=== PATIENT | male | born 1945 | race Caucasian/White ===

== ENCOUNTER → 2017-12-31 | Outpatient (CLI) | payer OTHER, MEDICARE ==
[~2017-12-31] VITALS: Ht 167.6 cm; Wt 83.9 kg
[~2017-12-31] MED LIST: COREG6.25 MG PO; MAXZIDE-25 MG1 EACH PO; MOBIC7.5 MG PO; RAMIPRIL10 MG PO; ZOCOR20 MG PO
--- NOTE | ~2017-12-31 | CATHLAB ---
[facility] [address] [place] [address] INVASIVE PROCEDURE REPORT Name: JERILYN IBRAHIM Ruth [id number] Admission: 12/31/17 Attend Phys: Sly Schneider Discharge: Date of : 45 Date of Service: 01/01/18 1243 Report #: [id number] THIS REPORT FOR: //name// APPROVED REPORT Study performed: 12/31/2017 10:05:02 Patient Details Patient Status: Out-Patient Room #: The patient is a 72 year-old male Event Personnel Sly Ruff Branch Customer Service Representative, Tammy Lou Monitor, Khushi Mayer RTR, SIENNA Scrub, Joshua Oliveira RN Indication Positive stress test Procedure Narrative The patient was brought electively to the Cardiac Catheterization Laboratory and was prepped and draped in a sterile manner. The Right Groin^ was infiltrated with 1% Lidocaine subcutaneous anesthesia. A PINNACLE 4FR Sheath #[id number] sheath was inserted into the RFA^. Coronary angiography was performed using coronary diagnostic catheters. The right coronary system was accessed and visualized with a JR 4 catheter. The left coronary system was accessed and visualized with a JL 4 catheter. The left ventricle was accessed and visualized with a Pigtail catheter. Left ventricular/Aortic Valve gradient assessed via catheter pullback. Hemostasis was obtained with manual pressure following sheath removal without any complications. The patient tolerated the procedure well and there were no complications associated with the procedure. There was no hematoma. Intraoperative Conscious Sedation Sedation start time: 10:26 Case end Time: 10:48 Versed 2 mg Fluoro Time: 2.56 minutes Dose: DAP 43829.10 cGycm2 554 mGy Contrast Type and Amount: Omnipaque 45 ml Coronary Angiography The patient's coronary anatomy is right dominant. [address] [address] INVASIVE PROCEDURE REPORT Name: JERILYN IBRAHIM Room #: [facility]#: [id number] Admission: 12/31/17 Attend Phys: Sly Schneider Discharge: Date of : 45 Date of Service: 01/01/18 1243 Report #: [id number] Diagnostic Cath Left Main Normal origin and caliber bifurcates left anterior descending left circumflex. There is mild scalloping of less than 30%. No significant obstructive lesion. LAD Small caliber type II vessel which has significant calcification on fluoroscopy. It's a moderate proximal calcification is noted as it proceeds giving rise to a first diagonal branches has an eccentric 65-70% lesion. This is calcified and is from its origin at an acute angle takeoff from the LAD proper. The LAD then continues in the anterior interventricular sulcus with mild to moderate luminal irregularities and terminates at the apex. Diagonal 1 Small-caliber vessel which has an eccentric 65-70% calcified lesion at the ostium. Then continues on without significant obstructive lesions. Flow is JULIO CESAR 300 injection. Circumflex Moderate caliber vessel which has heavy fluoroscopic calcification proximally. It gives rise to 2 early marginal branches which are small in caliber and free of high-grade disease although there is luminal irregularities present. There appears to be a 50% at worst lesion after the second marginal branches the circumflex proper continues posteriorly terminating and posterior wall is small-caliber bifurcating vessels Right Coronary Large caliber ectatic vessel of normal origin which has irregularities of less than 30% in the ectatic region. At the posterior crux of the heart at the origin of the posterior descending artery appears to have a normal appearing vessel and there is a 50% blockage noted prior to the distal circulation becoming ectatic once again. No significant flow-limiting findings are noted R PDA Moderate caliber vessel or seen in the posterior interventricular sulcus thinning and terminating as small-caliber vessel at the apex with luminal irregularities Left Ventriculography Left Ventriculography was not performed. Hemodynamics The aortic pressure is 133/78 mmHg with a mean of 93 mmHg. The left ventricular pressure is 125/9 mmHg with a mean of mmHg. The left ventricular end diastolic pressure is 19 mmHg. Conclusion 1. Coronary artery disease moderate two-vessel with severely ectatic right coronary artery 2. Abnormal hemodynamics with elevated left ventricular end-diastolic pressures [facility] [address] [place] [address] INVASIVE PROCEDURE REPORT Name: JERILYN IBRAHIM Room #: REG [place]#: [id number] Admission: 12/31/17 Attend Phys: Sly Schneider Discharge: Date of : 45 Date of Service: 01/01/18 1243 Report #: [id number] Recommendations Cardiac Risk Reduction Program Aggressive Medical Therapy <ELECTRONICALLY SIGNED> By: Sly Ruff MD 01/01/18 1243 1243 1243 Sly Ruff MD /INF
[2017-12-31 08:40] VITALS: BP 121/74
== END | disposition home or self-care (01) ==
LOC: CATH 07:53
DX: I25.10 Atherosclerotic heart disease of native coronary artery without angina pectoris (principal); I50.1 Left ventricular failure, unspecified; I10 Essential (primary) hypertension; Z98.890 Other specified postprocedural states; Z79.899 Other long term (current) drug therapy

== ENCOUNTER 2018-04-02 15:02 | Inpatient (IN) | payer OTHER, MEDICARE ==
[~2018-04-02] VITALS: Ht 167.6 cm; Wt 78.9 kg
--- NOTE | ~2018-04-02 | HC ---
[facility] [place] [address] CONSULTATION Name: JERILYN IBRAHIM Room #: 216-P [facility] IN M.R.#: [id number] Admission: 04/02/18 Attend Phys: Bill Garcia MD Discharge: Date of : 45 Report #: [id number] THIS REPORT FOR: //name// CC: Bill MORILLO PCP DATE OF SERVICE: 04/03/2018 INDICATION: Shortness of air. HISTORY OF PRESENT ILLNESS: This is a 72-year-old gentleman with a history of moderate CAD, moderate nonischemic cardiomyopathy, hypertension, hypercholesterolemia, presenting with increasing dyspnea and palpitations. Over the past week, he has developed dyspnea with mild to moderate levels of physical exertion. It seems to be worse at night when he is lying down. He has also noticed an increase in his heart rate. The patient denies any history of fever, chills, or nausea. He had a recent knee operation about 7 weeks ago. He presented to the ER for an evaluation. A CT scan was negative for PE. He was diagnosed with heart failure and managed with IV Lasix. Overnight, his output was 3.6 liters of urine. PAST MEDICAL HISTORY: Cardiac catheterization by Dr. Ruff in 12/2017 revealed moderate 2-vessel disease with an ectatic RCA and medical therapy was recommended. An echo revealed EF in the 40% range with mild to moderate AI and MR. Hypertension, hypercholesterolemia. ALLERGIES: None. MEDICATIONS: Include Maxzide one tablet a day, ramipril 10 mg daily, Coreg 6.25 mg twice a day, Zocor 10 mg at night, aspirin once a day. SOCIAL HISTORY: Denies tobacco use. FAMILY HISTORY: Negative for premature CAD. REVIEW OF SYSTEMS: A full 10-point review of systems performed, only the pertinent positives and negatives are described in the HPI. PHYSICAL EXAMINATION: VITAL SIGNS: Blood pressure is 110/60 mmHg, heart rate is 80 beats per minute. GENERAL APPEARANCE: This is a well-developed, well-nourished male, in no acute respiratory distress. HEAD AND EYES: Normocephalic. Sclerae anicteric. ENT: Oral mucosa moist. NECK: Supple. LUNGS: Clear to auscultation. [facility] [address] [place] [address] CONSULTATION Name: JERILYN IBRAHIM Room #: 216-P [facility] IN .R.#: [id number] Admission: 04/02/18 Attend Phys: Bill Garcia MD Discharge: Date of : 45 Report #: [id number] CARDIAC: Regular rate and rhythm, 1/6 systolic murmur. ABDOMEN: Soft, nontender. EXTREMITIES: No cyanosis, trace lower extremity edema. NEUROLOGIC: Alert and oriented x 3. ECG reveals sinus tachycardia at 105 beats per minute, first degree AV block, PVC, nonspecific ST segment abnormality. LABORATORY VALUES: Creatinine is 1.4. Sodium is 139. White count is 7.1. Troponin is negative. ASSESSMENT AND PLAN: 1. Acute on chronic combined congestive heart failure, most likely attributed to dietary indiscretion. He has been eating at restaurants for the past several weeks. We discussed the importance of maintaining a low salt diet. His symptoms have improved with IV Lasix. We will repeat an echo for now. Probable discharge planning in the next few days. 2. Coronary artery disease/moderate disease, stable with no angina episodes. Continue with aspirin. 3. Hypertension. The blood pressure is on the low side, tolerating low doses of carvedilol and JANICE inhibitor. 4. Hypercholesterolemia, continue with statin therapy. <ELECTRONICALLY SIGNED> By: Peng Miramontes MD 04/04/18 0816 0847 0906 Peng Miramontes MD /nt
--- NOTE | ~2018-04-02 | EKG ---
[address] [place] [address] ELECTROCARDIOGRAM REPORT Name: JERILYN IBRAHIM Room #: 216-P [facility] IN .R.#: [id number] Admission: 04/02/18 Attend Phys: Bill Garcia MD Discharge: Date of : 45 Report #: [id number] THIS REPORT FOR: //name// [facility] ED Test Date: 2018-04-02 Test Time: 15:09:24 Pat Name: JERILYN IBRAHIM Department: Room: Gender: M Regional Business Manager: MZOOK : 1945 Requested By: Rodrigo Giron Order Number: [id number] MD: Brandon Thompson Measurements Intervals [place] Rate: 105 P: -46 SC: 212 QRS: -7 QRSD: 99 T: 151 QT: 379 QTc: 502 Interpretive Statements Sinus or ectopic atrial tachycardia Ventricular premature complex Borderline prolonged SC interval Nonspecific T abnrm, anterolateral leads Prolonged QT interval No previous ECG available for comparison Electronically Signed On 04-03-2018 8:39:53 CDT by Brandon Thompson [email or web address] <ELECTRONICALLY SIGNED> By: Brandon Thompson MD, [facility] 04/03/18 0839 1509 1509 Brandon Thompson MD, [facility] /EPI
--- NOTE | ~2018-04-02 | 2DMMODE ---
[facility] [address] [place] [address] 2 D/M-MODE ECHOCARDIOGRAM Name: PATRICEJERILYN L Room #: 216-P [facility] IN ..#: [id number] Admission: 04/02/18 Attend Phys: Bill Garcia, Discharge: Date of : 45 Date of Service: 04/03/18 1545 Report #: [id number] THIS REPORT FOR: //name// APPROVED REPORT Study performed: 04/03/2018 09:20:19 EXAM: Comprehensive 2D, Doppler, and color-flow Echocardiogram Patient Location: Echo lab Room #: 216 Status: routine BSA: 1.89 HR: 95 bpm BP: 98/55 mmHg Rhythm: Arrhythmia, frequent PVCs Other Information Study Quality: Good/lung artifact Indications Dyspnea on exertion, elevated BNP, CHF. Hx: CAD, cardiomyopathy (35-40% in December 2017) HTN, HLP 2D Dimensions RVDd: 29.78 mm LVEF(%): 17.93 (>50%) IVSd: 9.98 (7-11mm) LVOT Diam: 21.90 (18-24mm) LVDd: 50.44 mm PWd: 9.85 (7-11mm) Ascending Ao: 40.12 (22-36mm) LVDs: 46.34 (25-40mm) Aortic Root: 36.11 mm George's LVEF: 17.93 % Volumes Left Atrial Volume (Systole) Single Plane 4CH: 43.06 mL Single Plane 2CH: 51.32 mL LA ESV Index: 27.00 mL/m2 Aortic Valve AoV Peak Willian.: 0.81 m/s AO Peak Gr.: 2.63 mmHg LVOT Max P.87 mmHg LVOT Max V: 0.68 m/s RYAN Vmax: 3.17 cm2 Mitral Valve MV Decel. Time: 96.21 ms [facility] [email or web address] [address] 2 D/M-MODE ECHOCARDIOGRAM Name: JERILYN IBRAHIM Room #: 216-P [facility] IN ..#: [id number] Admission: 04/02/18 Attend Phys: Bill Garcia, Discharge: Date of : 45 Date of Service: 04/03/18 1545 Report #: [id number] MV E Max Willian.: 0.64 m/s Pulmonary Valve PV Peak Willian.: 0.59 m/s PV Peak Gr.: 1.37 mmHg Pulmonary Vein P Vein S: 0.34 m/s P Vein D: 0.28 m/s P Vein S/D Ratio: 1.21 Tricuspid Valve TR Peak Willian.: 1.82 m/s RAP Estimate: 5.00 mmHg TR Peak Gr.: 13.23 mmHg PA Pressure: 18.00 mmHg Left Ventricle The left ventricle is normal size. There is normal left ventricular wall thickness. Left ventricular systolic function is moderate to severely decreased. LVEF is 30-35%. This study is not technically sufficient to allow evaluation of the LV diastolic function. Right Ventricle The right ventricle is normal size. The right ventricular systolic function is normal. Atria The left atrium size is normal. The right atrium size is normal. Aortic Valve Aortic valve leaflets are mildly thickened. Mild aortic regurgitation. There is no aortic valvular stenosis. Mitral Valve The mitral valve is normal in structure. Trace mitral regurgitation. Tricuspid Valve The tricuspid valve is normal in structure. Trace tricuspid regurgitation. Estimated PAP is 20mmHg. Pulmonic Valve The pulmonary valve is normal in structure. Trace pulmonic regurgitation. Great Vessels [facility] [address] [place] [address] 2 D/M-MODE ECHOCARDIOGRAM Name: JERILYN IBRAHIM Room #: 216-P [facility] IN .R.#: [id number] Admission: 04/02/18 Attend Phys: Bill Garcia, Discharge: Date of : 45 Date of Service: 04/03/18 1545 Report #: [id number] The aortic root is normal in size. Ascending aorta is dilated at 4.0cm IVC is normal in size and collapses >50% with inspiration. Pericardium Trivial pericardial effusion noted. Small right pleural effusion noted. <Conclusion> The left ventricle is normal size. There is normal left ventricular wall thickness. Left ventricular systolic function is moderate to severely decreased. LVEF is 30-35%. The right ventricle is normal size. The left atrium size is normal. Mild aortic regurgitation. Trace mitral regurgitation. Trace tricuspid regurgitation. Estimated PAP is 20mmHg. <ELECTRONICALLY SIGNED> By: Peng Miramontes MD 04/03/18 1545 1545 1545 Peng Miramontes MD /INF
[2018-04-02 15:46] LABS: BASOPHILS 0.5 % (0.0-2.0); EOSINOPHILS 1.9 % (0.0-3.0); HEMATOCRIT 40.5 % (42.0-52.0); HEMOGLOBIN 13.9 gm/dL (14.0-18.0); LYMPHOCYTES 19.5 % (24.0-44.0); MCH 32.8 pg (26.0-34.0); MCHC 34.4 g/dL (28.0-37.0); MCV 95.3 fL (80.0-100.0); MONOCYTES 8.2 % (1.0-8.0); PLATELET COUNT 224 thou/uL (150-400); POLYS 69.9 % (36.0-66.0); RBC 4.25 mil/uL (4.50-6.00); RDW 14.2 % (10.5-14.5); WBC 7.1 thou/uL (4.0-11.0)
[2018-04-02 15:55] LABS: ANION GAP 11 mmol/L (7-16); BUN 24 mg/dL (7-18); CALCIUM 9.2 mg/dL (8.5-10.1); CHLORIDE 102 mmol/L (98-107); CO2 23 mmol/L (21-32); CREATININE 1.4 mg/dL (0.7-1.3); GLUCOSE 119 mg/dL (74-106); POTASSIUM 3.8 mmol/L (3.5-5.1); SODIUM 136 mmol/L (136-145)
[2018-04-02 16:04] LABS: TROPONIN-I <0.06 ng/mL (<0.06)
[2018-04-02] MEDS ORDERED: FLOMAX0.4 MG PO (16:32)
[2018-04-02] MEDS ORDERED: ASPIR 8181 MG PO (16:32)
[2018-04-02 16:59] VITALS: BP 120/82
[2018-04-02 18:03] VITALS: BP 120/82
[2018-04-02 20:05] VITALS: BP 108/73
[2018-04-03] VITALS (7 sets, daily range): BP systolic 87–118; BP diastolic 55–77
[2018-04-03 04:16] LABS: CALCIUM 9.1 mg/dL (8.5-10.1); CREATININE 1.4 mg/dL (0.7-1.3); POTASSIUM 3.5 mmol/L (3.5-5.1)
[2018-04-04 04:29] LABS: HEMATOCRIT 41.5 % (42.0-52.0); HEMOGLOBIN 14.4 gm/dL (14.0-18.0); MCH 33.1 pg (26.0-34.0); MCHC 34.6 g/dL (28.0-37.0); MCV 95.5 fL (80.0-100.0); RBC 4.35 mil/uL (4.50-6.00); RDW 14.3 % (10.5-14.5); WBC 8.4 thou/uL (4.0-11.0)
[2018-04-04 04:41] LABS: CREATININE 1.5 mg/dL (0.7-1.3); POTASSIUM 3.4 mmol/L (3.5-5.1)
[2018-04-04 05:04] VITALS: BP 98/69
[2018-04-04 07:43] VITALS: BP 109/79
[2018-04-04] MEDS ORDERED: LASIX 40 MG TAB40 M1 PO (11:57)
[2018-04-04] MEDS ORDERED: K-DUR 20 MEQ T20 MEQ PO (11:57)
[2018-04-04 12:03] VITALS: BP 109/79
== END 2018-04-04 12:46 | disposition home or self-care (01) | DRG 291 ==
LOC: ER 15:02 → EROBS 16:54 → 2N 16:54
PROVIDERS: Emergency Medicine; Internal Medicine; Nurse Practitioner Family
DX: I11.0 Hypertensive heart disease with heart failure (principal); E43 Unspecified severe protein-calorie malnutrition; N17.9 Acute kidney failure, unspecified; H33.23 Serous retinal detachment, bilateral; I50.43 Acute on chronic combined systolic (congestive) and diastolic (congestive) heart failure; I42.9 Cardiomyopathy, unspecified; I25.10 Atherosclerotic heart disease of native coronary artery without angina pectoris; E78.00 Pure hypercholesterolemia, unspecified; I08.3 Combined rheumatic disorders of mitral, aortic and tricuspid valves; N40.0 Benign prostatic hyperplasia without lower urinary tract symptoms; K59.00 Constipation, unspecified; Z96.653 Presence of artificial knee joint, bilateral; Z79.82 Long term (current) use of aspirin; Z79.899 Other long term (current) drug therapy; Z98.42 Cataract extraction status, left eye; Z98.41 Cataract extraction status, right eye
CPT/HCPCS: 10194